=== PATIENT | female | born 1960 | race African-American/Black ===

== ENCOUNTER 2016-04-30 18:11 | Emergency (ER) | payer OTHER ==
[~2016-04-30] VITALS: Ht 154.9 cm; Wt 63.6 kg
[2016-04-30] MEDS ORDERED: BACL10TA PO (18:53)
[2016-04-30 20:16] LABS: INFLUENZA TYPE B NEGATIVE FOR TYPE B (NEGATIVE)
[2016-04-30 21:00] VITALS: BP 127/83
== END 2016-04-30 21:01 | disposition home or self-care (01) ==
LOC: EMS 18:12
DX: J20.8 Acute bronchitis due to other specified organisms (principal); F17.210 Nicotine dependence, cigarettes, uncomplicated
CPT/HCPCS: 87804; 99285

== ENCOUNTER 2017-02-11 13:54 | Emergency (ER) | payer OTHER ==
[~2017-02-11] VITALS: Ht 152.4 cm; Wt 59.1 kg
[~2017-02-11 13:54] MED LIST: BACL10TA PO
[2017-02-11 14:54] VITALS: BP 119/92
[2017-02-11] MEDS ORDERED: SILVER SULFADIAZINE 1% 25 GM CREAM TP ONE (15:30)
== END 2017-02-11 15:59 | disposition home or self-care (01) ==
LOC: EMS 13:56
DX: T24.4 Corrosion of unspecified degree of lower limb, except ankle and foot (principal); F17.210 Nicotine dependence, cigarettes, uncomplicated; Y92.830 Public park as the place of occurrence of the external cause
CPT/HCPCS: 99284; Z7610; 16020

== ENCOUNTER 2017-05-11 19:06 | Emergency (ER) | payer OTHER ==
[~2017-05-11] VITALS: Ht 160 cm; Wt 59.1 kg
[2017-05-11 20:01] LABS: INFLUENZA TYPE A NEGATIVE FOR TYPE A (NEGATIVE); INFLUENZA TYPE B NEGATIVE FOR TYPE B (NEGATIVE)
[2017-05-11] MEDS ORDERED: ALBUTEROL SULFATE HFA 90 MCG/PUFF 8 GM INHALER IH ONE (20:15)
[2017-05-11] MEDS ORDERED: KETOROLAC TROMETHAMINE 60 MG/2 ML VIAL IM ONE (21:00)
[2017-05-11] MEDS ORDERED: DEXAMETHASONE SOD PHOS 4 MG/ML 5 ML VIAL IM ONE (21:00)
[2017-05-11 22:01] VITALS: BP 154/84
== END 2017-05-11 22:05 | disposition home or self-care (01) ==
LOC: EMS 19:07
DX: J45.901 Unspecified asthma with (acute) exacerbation (principal); J06.9 Acute upper respiratory infection, unspecified; M25.512 Pain in left shoulder; F17.210 Nicotine dependence, cigarettes, uncomplicated
CPT/HCPCS: 71046; 87804; 94640; 96372; 99285; 99406; J1100; J1885; J3535

== ENCOUNTER 2017-10-26 10:45 | Emergency (ER) | payer OTHER ==
[~2017-10-26] VITALS: Ht 154.9 cm; Wt 56.8 kg
[2017-10-26 10:46] VITALS: BP 135/88
[2017-10-26 14:13] LABS: APPEARANCE,URINE CLOUDY (CLEAR); GLUCOSE, URINE (UA) NEGATIVE (NEGATIVE); KETONES,URINE TRACE mg/dL (NEGATIVE); LEUKOCYTE ESTERASE ,URINE LARGE (NEGATIVE); NITRATE,URINE NEGATIVE (NEGATIVE); OCCULT BLOOD,URINE SMALL (NEGATIVE); PH,URINE 5.5 (5.0-8.0); PROTEIN,URINE TRACE (NEGATIVE)
[2017-10-26 14:29] LABS: BILIRUBIN,URINE PRELIM. POSITIVE (NEGATIVE)
[2017-10-26 14:30] LABS: BACTERIA,URINE Many /HPF (None Seen); SQUAMOUS EPITHELIAL CELL,UR Many /LPF (None Seen); WBC,URINE 51-100 /HPF (0-5)
== END 2017-10-26 15:36 | disposition home or self-care (01) ==
LOC: EMS 10:46
DX: N39.0 Urinary tract infection, site not specified (principal); L73.1 Pseudofolliculitis barbae; J45.909 Unspecified asthma, uncomplicated; F17.210 Nicotine dependence, cigarettes, uncomplicated
CPT/HCPCS: 87086; 87491; 87591; 99284

== ENCOUNTER 2018-12-24 17:01 | Emergency (ER) | payer OTHER ==
[~2018-12-24] VITALS: Ht 154.9 cm; Wt 56.8 kg
[2018-12-24] MEDS ORDERED: BACITRACIN 0.9 GM PACKET OINTMENT TP ONE (17:30)
[2018-12-24] MEDS ORDERED: IBUPROFEN 600 MG TABLET PO ONE (18:15)
[2018-12-24 18:40] VITALS: BP 136/80
== END 2018-12-24 18:41 | disposition home or self-care (01) ==
LOC: EMS 17:02
DX: M25.512 Pain in left shoulder (principal); J45.909 Unspecified asthma, uncomplicated; F17.210 Nicotine dependence, cigarettes, uncomplicated; Z98.890 Other specified postprocedural states